=== PATIENT | male | born 1980 | race Caucasian/White ===

== ENCOUNTER 2016-08-11 15:34 | Emergency (ER) | payer OTHER ==
[2016-08-11 15:47] VITALS: RESP 18; O2SAT 100
[2016-08-11] MEDS ORDERED: Sodium Chloride 0.9% 1,000 ML IV ONE (15:59)
[2016-08-11 16:25] LABS: BASO # 0.1 K/uL (0.0-0.2); BASO % 1.1 % (0.0-2.0); EOS % 0.4 % (0.0-4.0); HEMATOCRIT 43.2 % (35.0-51.0); LYMPH # 1.2 K/uL (1.0-4.3); LYMPH % 27.1 % (20.0-40.0); MEAN CELL VOLUME 88.1 fL (80.0-94.0); MEAN CORPUSCULAR HEMOGLOBIN 28.9 pg (27.0-31.0); MEAN CORPUSCULAR HGB CONC 32.8 g/dL (33.0-37.0); MEAN PLATELET VOLUME 9.7 fL (7.2-11.7); MONO # 0.5 K/uL (0.0-0.8); MONO % 10.8 % (0.0-10.0); NRBC % 0.1 % (0.0-2.0); RED CELL DISTRIBUTION WIDTH 14.1 % (11.5-14.5); WHITE BLOOD COUNT 4.5 K/uL (4.8-10.8)
--- NOTE | 2016-08-11 16:29 | C.PDOC ---
History Of Present Illness <EuniceAmaya Magdalena - Last Filed: 08/11/16 18:45> <Malick Milner E - Last Filed: 08/11/16 20:41> Patient is a 35 year old male who presents to the ER with a complaint of an intermittent fever for the past 2 weeks. Patient states the fever go as high as 103; he also reports symptoms of sore throat and diarrhea. Denies any recent travel, nausea or vomiting. Patient was evaluated by Dr Charles Rajan for same complaint and instructed to follow up in ED. (Amaya Dawson) History Per: Patient History/Exam Limitations: no limitations Onset/Duration Of Symptoms: Days (14), Intermittent Episodes Current Symptoms Are (Timing): Still Present Location Of Pain: Throat Sick Contacts (Context): None Associated Symptoms: Fever, Sore Throat, Diarrhea. denies: Nausea, Vomiting Recent travel outside of the [place]: No <Amaya Dawson - Last Filed: 08/11/16 18:45> <Malick Milner E - Last Filed: 08/11/16 20:41> Time Seen by Provider: 08/11/16 15:57 Chief Complaint (Nursing): Fever Past Medical History Reviewed: Historical Data, Nursing Documentation, Vital Signs - Medical History PMH: No Chronic Diseases Surgical History: Appendectomy Family History: States: Unknown Family Hx - Social History Hx Tobacco Use: No Hx Alcohol Use: Yes Hx Substance Use: No - Immunization History Hx Tetanus Toxoid Vaccination: No Hx Influenza Vaccination: Yes Hx Pneumococcal Vaccination: No <Amaya Dawson - Last Filed: 08/11/16 18:45> Review Of Systems Except As Marked, All Systems Reviewed And Found Negative. Constitutional: Positive for: Fever. Negative for: Chills ENT: Positive for: Throat Pain Gastrointestinal: Positive for: Diarrhea. Negative for: Nausea, Vomiting <Amaya Dawson - Last Filed: 08/11/16 18:45> Physical Exam - Physical Exam Appears: Non-toxic, No Acute Distress Skin: Normal Color, Warm, Dry Head: Atraumatic, Normacephalic Oral Mucosa: Moist Tongue: Normal Appearing Lips: Normal Appearing Throat: Normal, No Erythema, No Exudate Chest: Symmetrical, No Tenderness Cardiovascular: Rhythm Regular, No Murmur Respiratory: Normal Breath Sounds, No Rales, No Rhonchi, No Wheezing Gastrointestinal/Abdominal: Soft, No Tenderness Extremity: Normal ROM Neurological/Psych: Oriented x3, Normal Speech, Normal Cognition Gait: Steady <Amaya Dawson - Last Filed: 08/11/16 18:45> ED Course And Treatment - Laboratory Results Result Diagrams: 08/11/16 16:22 08/11/16 16:22 Lab Interpretation: Normal O2 Sat by Pulse Oximetry: 100 (Room air) Pulse Ox Interpretation: Normal - Radiology CXR: Interpreted by Me CXR Interpretation: Yes: No Acute Disease, Fracture Progress Note: Blood work, CXR, urinalysis and throat culture ordered. IV fluids administered. Case discussed and patient evaluated by Dr Charles Rajan who requested additional labs and US abdomen Reassessment Condition: Unchanged - Physician Consult Information Physician Contacted: Luiz Rajan Outcome Of Conversation: call with results <Amaya Dawson - Last Filed: 08/11/16 18:45> - Laboratory Results Result Diagrams: 08/11/16 16:22 08/11/16 16:22 - CT Scan/US Abdominal US Other Rad Studies (CT/US): Read By Radiologist, Radiology Report Reviewed CT/US Interpretation: NAD Progress Note: Pt was signed out to me at 7pm to f/up abdominal US. Pt feels much better and wants to go home. <Malick Milner E - Last Filed: 08/11/16 20:41> Disposition Discussed With : Luiz Rajan - Disposition Disposition Time: 19:00 - POA Present On Arrival: None <Amaya Dawson - Last Filed: 08/11/16 18:45> Discussed With : Luiz Rajan Comment: I d/w the pt's lab and US findings. He wants pt for be discharged home and f/up in his office. He will f/up all the pending labs. Doctor Will See Patient In The: Office Counseled Patient/Family Regarding: Studies Performed, Diagnosis, Need For Followup - Disposition Disposition Time: 20:40 <Malick Milner E - Last Filed: 08/11/16 20:41> - Disposition Referrals: Luiz Rajan MD [Staff Provider] - Disposition: HOME/ ROUTINE Condition: IMPROVED Additional Instructions: Drink plenty of fluids. Follow up with your doctor within 2-3 days for further evaluation and treatment. Return to the ER if you develop high fever, lethargy, not tolerating fluids, worsening of symptoms or if you have any other concerns. Forms: General Discharge Instructions - Clinical Impression Clinical Impression: Fever - Scribe Statement The provider has reviewed the documentation as recorded by the Scribe <Amaya Dawson - Last Filed: 08/11/16 18:45> <Malick Milner - Last Filed: 08/11/16 20:41> - Scribe Statement Asif Yarbrough All medical record entries made by the Scribe were at my direction and personally dictated by me. I have reviewed the chart and agree that the record accurately reflects my personal performance of the history, physical exam, medical decision making, and the department course for this patient. I have also personally directed, reviewed, and agree with the discharge instructions and disposition. (Amaya Dawson) Physician Patient Turnover Patient Signed Over To: Malick Milner Handoff Comments: pending labs and US <Amaya Dawson - Last Filed: 08/11/16 18:45>
[2016-08-11 16:45] LABS: RBC URINE 1 /hpf (0-3); URINE BILIRUBIN NEGATIVE (NEGATIVE); URINE BLOOD NEGATIVE (NEGATIVE); URINE COLOR Yellow (YELLOW); URINE GLUCOSE (UA) NORMAL (Normal); URINE KETONE NEGATIVE (NEGATIVE); URINE LEUKOCYTE ESTERASE NEG Leu/uL (Negative); URINE PROTEIN NEGATIVE (NEGATIVE); URINE UROBILINOGEN NORMAL mg/dL (0.2-1.0); WBC URINE < 1 /hpf (0-5)
[2016-08-11 17:04] LABS: CHLORIDE 102 mmol/L (98-107); POTASSIUM 3.4 mmol/L (3.6-5.2); SODIUM 141 mmol/L (132-148)
[2016-08-11 17:06] LABS: GFR AFRICAN-AMERICAN > 60
[2016-08-11 17:07] LABS: ALKALINE PHOSPHATASE 88 U/L (38-126); ALT/SGPT 46 U/L (21-72); AST/SGOT 58 U/L (17-59); CALCIUM 8.8 mg/dl (8.6-10.4); CARBON DIOXIDE 27 mmol/L (22-30); GLUCOSE,RANDOM 84 mg/dL (75-110); TOTAL PROTEIN 7.6 g/dL (6.3-8.3)
[2016-08-11 17:08] LABS: BLOOD UREA NITROGEN 2 mg/dL (9-20)
[2016-08-11] MEDS ORDERED: Sodium Chloride 0.9% 1,000 ML ONE (17:14)
--- NOTE | 2016-08-11 17:25 | RAD ---
HISTORY: SOB COMPARISON: No prior. TECHNIQUE: Chest PA and lateral FINDINGS: LUNGS: No pulmonary infiltrate. Possible calcified granuloma in left upper lobe. PLEURA: No significant pleural effusion identified. No pneumothorax apparent. CARDIOVASCULAR: Normal. OSSEOUS STRUCTURES: No significant abnormalities. VISUALIZED UPPER ABDOMEN: Normal. OTHER FINDINGS: None. IMPRESSION: No active disease.
[2016-08-11 20:48] VITALS: BP 121/82; PULSE 69; TEMP 98.2
--- NOTE | 2016-08-12 11:37 | US ---
HISTORY: Pain COMPARISON: None. TECHNIQUE: Sonographic evaluation of the abdomen. FINDINGS: LIVER: Measures 17.1 cm. Normal echogenicity of the liver parenchyma. No mass. No intrahepatic bile duct dilatation. GALLBLADDER: Gallbladder contracted. No calculi identified. No significant mural thickening or pericholecystic fluid. Negative sonographic Oleary sign. COMMON BILE DUCT: Measures 2 mm. No stones. No dilatation. PANCREAS: Unremarkable as visualized. No mass. No ductal dilatation. RIGHT KIDNEY: Measures 11.4cm. Normal echogenicity. No calculus, mass, or hydronephrosis. LEFT KIDNEY: Measures 11.1cm. Normal echogenicity. No calculus, mass, or hydronephrosis. SPLEEN: Normal in size and contour. No mass. AORTA: No aneurysmal dilatation. IVC: Unremarkable. OTHER FINDINGS: None. IMPRESSION: No evidence of cholelithiasis or cholecystitis. Unremarkable examination. Preliminary interpretation of this examination was reported by [facility] at 8:18 p.m. on 08/11/2016. There is concurrence of this report with the preliminary interpretation.
[2016-08-14 13:34] LABS: 18 KD (IGG) BAND Nonreactive; 23 KD (IGG) BAND Nonreactive; 23 KD (IGM) BAND Nonreactive; 28 KD (IGG) BAND Nonreactive; 30 KD (IGG) BAND Nonreactive; 39 KD (IGG) BAND Nonreactive; 39 KD (IGM) BAND Nonreactive; 41 KD (IGG) BAND Nonreactive; 41 KD (IGM) BAND Nonreactive; 45 KD (IGG) BAND Nonreactive; 58 KD (IGG) BAND Nonreactive; 66 KD (IGG) BAND Nonreactive; 93 KD (IGG) BAND Nonreactive; LYME DISEASE INTERP (IGG) Negative (Negative)
== END 2016-08-11 20:47 | disposition home or self-care (01) ==
LOC: C.ER 15:34
DX: R50.9 Fever, unspecified (principal)
CPT/HCPCS: 36415; 71020; 76700; 80053; 81001; 85025; 85651; 86140; 86617; 86663; 86703; 87040; 87070; 87086; 87430; 87491; 87591; 96360; 99285; J7040